=== PATIENT | male | born 1960 | race Caucasian/White ===

== ENCOUNTER 2016-04-25 13:46 | Day surgery (SDC) | payer BC ==
[~2016-04-25 13:46] MED LIST: AMLODIPINE BESY10 MG PO; APEDRIA; APIDRA100 UNIT/1 SC; ASPIR-LOW81 MG PO; ASPIRIN325 MG PO; ATORVASTATIN CA80 MG PO; CATAPRES0.2 MG PO; CLONIDINE HCL0.1 MG PO; CLOPIDOGREL75 MG PO; COUMADIN5 MG PO; DICYCLOMINE HCL10 MG PO; HYDROCHLOROTHIA25 MG PO; LANTUS 3 M100 UNITS1 SC; LANTUS100 UNIT/1 SQ; LOSARTAN POTAS100 MG PO; METOPROLOL TART25 MG PO; NAPROSYN500 MG PO; NITROGLYCERIN0.4 MG PO; NORMODYNE,TRAN200 MG PO; NORVASC2.5 MG PO; NOVOLOG100 UNIT/1 SQ; OMEPRAZOLE40 M1 PO; PANTOPRAZOLE SO40 MG PO; PERCOCET 10/1 TABLET PO; PRINIVIL20 MG PO; PROTONIX40 MG PO; ULTRAM50 MG PO; VALIUM5 MG PO
[2016-04-25 14:33] LABS: POINT-OF-CARE METER ID UU13113696
[2016-04-25 16:24] LABS: POINT-OF-CARE METER ID UU13113819
== END 2016-04-25 19:10 | disposition home or self-care (01) ==
LOC: CATH 13:46
PROVIDERS: Surgery
PROC: 047L34Z Dilation of Left Femoral Artery with Drug-eluting Intraluminal Device, Percutaneous Approach (ICD-10-PCS; principal; 2016-04-25)
DX: I70.222 Atherosclerosis of native arteries of extremities with rest pain, left leg (principal); I70.92 Chronic total occlusion of artery of the extremities; E11.9 Type 2 diabetes mellitus without complications; I10 Essential (primary) hypertension; I25.10 Atherosclerotic heart disease of native coronary artery without angina pectoris; M19.90 Unspecified osteoarthritis, unspecified site
CPT/HCPCS: 82948; C1725; C1760; C1769; C1874; C1887; C1894; J1644; J2250; J3010; S0020

== ENCOUNTER 2016-07-07 17:12 | Observation (INO) | payer BC ==
[~2016-07-07] VITALS: Ht 182.9 cm; Wt 91.4 kg
[2016-07-07 17:48] LABS: HEMATOCRIT 53.1 % (38.0-50.0); MCH 28.5 PG (29.0-34.0); MCHC 33.9 G/DL (30.0-36.0); MCV 84.2 FL (86-99); MEAN PLAT.VOLUME 9.4 uM^3 (9.0-12.4); PLATELET COUNT 309 K/uL (156-360); RBC DIS.WIDTH-CV 12.9 % (11.8-14.6); RBC DIS.WIDTH-SD 39.8 % (39-53); RED BLOOD COUNT 6.31 M/uL (4.00-5.50); WHITE BLOOD COUNT 12.5 K/uL (4.1-10.2)
[2016-07-07 17:52] LABS: POINT-OF-CARE METER ID UU14100415
[2016-07-07 18:09] LABS: CHLORIDE 99 mEq/L (99-109); POTASSIUM 4.3 mEq/L (3.7-5.4); SODIUM 136 mEq/L (136-147)
[2016-07-07 18:10] LABS: GLUCOSE 387 mg/dL (70-99)
[2016-07-07 18:12] LABS: ANION GAP 17 MEQ/L (2-14)
[2016-07-07 18:14] LABS: GFR ESTIMATE (CALCULATED) 56 mL/min/
[2016-07-07 18:15] LABS: UREA NITROGEN (BUN) 14 mg/dL (9-23)
[2016-07-07 18:19] LABS: TROP-I INTERPRETATION NEGATIVE; TROPONIN-I < 0.01 ng/mL (0.0-0.30)
[2016-07-07 18:43] LABS: D-DIMER ELISA 0.26 mg/L FEU (< 0.57)
[2016-07-07 21:04] LABS: TROP-I INTERPRETATION NEGATIVE; TROPONIN-I < 0.01 ng/mL (0.0-0.30)
[2016-07-07 23:29] VITALS: BP 149/97
[2016-07-07 23:52] LABS: POINT-OF-CARE METER ID UU13113700
[2016-07-08] MEDS ORDERED: ATORVASTATIN CA80 MG PO (02:15)
[2016-07-08] MEDS ORDERED: LO-DOSE ASPIRIN81 M2 PO (02:15)
[2016-07-08] MEDS ORDERED: PLAVIX75 MG PO (02:16)
[2016-07-08] MEDS ORDERED: LANTUS 3 M100 UNITS1 SC (02:19)
[2016-07-08] MEDS ORDERED: APIDRA100 UNIT/1 SC (02:20)
[2016-07-08] MEDS ORDERED: METOPROLOL TART25 MG PO (02:21)
[2016-07-08] MEDS ORDERED: LOSARTAN POTAS100 MG PO (02:21)
[2016-07-08] MEDS ORDERED: NITROSTAT0.4 MG SL (02:22)
[2016-07-08] MEDS ORDERED: PROTONIX40 MG PO (02:22)
[2016-07-08] MEDS ORDERED: COUMADIN5 MG PO (02:25)
[2016-07-08] MEDS ORDERED: CLONIDINE HCL0.1 MG PO (02:26)
[2016-07-08] MEDS ORDERED: AMLODIPINE BESY10 MG PO (02:26)
[2016-07-08] MEDS ORDERED: HYDROCHLOROTHIA25 MG PO (02:27)
[2016-07-08] MEDS ORDERED: ULTRAM ER100 MG PO (02:33)
[2016-07-08 02:36] LABS: TROP-I INTERPRETATION NEGATIVE; TROPONIN-I < 0.01 ng/mL (0.0-0.30)
[2016-07-08 05:30] VITALS: BP 121/72
[2016-07-08 07:49] VITALS: BP 143/78
[2016-07-08 08:21] LABS: POINT-OF-CARE METER ID UU13113700
== END 2016-07-08 08:42 | disposition home or self-care (01) ==
LOC: EME 17:12 → EDOF 20:13 → 5WEST 22:33
PROVIDERS: Emergency Medicine; Hospitalist; Internal Medicine
DX: R07.9 Chest pain, unspecified (principal); E11.65 Type 2 diabetes mellitus with hyperglycemia; I25.10 Atherosclerotic heart disease of native coronary artery without angina pectoris; I10 Essential (primary) hypertension; F17.200 Nicotine dependence, unspecified, uncomplicated; I73.9 Peripheral vascular disease, unspecified; Z95.5 Presence of coronary angioplasty implant and graft; E78.5 Hyperlipidemia, unspecified; G25.81 Restless legs syndrome
CPT/HCPCS: 71020; 80048; 82948; 84484; 85027; 85379; 93005; 99281; 99285; G0378; J1815; J7030

== ENCOUNTER 2016-08-01 00:22 | Emergency (ER) | payer BC ==
[~2016-08-01] VITALS: Ht 182.9 cm; Wt 91.9 kg
[~2016-08-01 00:22] MED LIST changes: +LO-DOSE ASPIRIN81 M2 PO; +NITROSTAT0.4 MG SL; +PLAVIX75 MG PO; +ULTRAM ER100 MG PO
[2016-08-01 01:07] LABS: BASOPHIL COUNT 0.1 K/uL (0-0.1); EOSINOPHIL (%) 1.2 % (0-5); EOSINOPHIL COUNT 0.1 K/uL (0-0.3); HEMATOCRIT 50.2 % (38.0-50.0); IMMATURE GRANULOCYTE (%) 0.3 % (0.0-0.7); INSTRUMENT ABS NEUTROPHIL CT 4.5 K/uL; LYMPHOCYTE COUNT 3.1 K/uL (1.0-2.8); MCH 28.8 PG (29.0-34.0); MCHC 34.3 G/DL (30.0-36.0); MCV 83.9 FL (86-99); MEAN PLAT.VOLUME 9.7 uM^3 (9.0-12.4); MONOCYTE (%) 9.9 % (3-12); MONOCYTE COUNT 0.9 K/uL (0-0.8); NEUTROPHIL (%) 51.8 % (45-76); NEUTROPHIL COUNT 4.5 K/uL (1.8-6.4); PLATELET COUNT 300 K/uL (156-360); RBC DIS.WIDTH-CV 12.4 % (11.8-14.6); RBC DIS.WIDTH-SD 37.7 % (39-53); RED BLOOD COUNT 5.98 M/uL (4.00-5.50); WHITE BLOOD COUNT 8.7 K/uL (4.1-10.2)
[2016-08-01 01:20] LABS: CHLORIDE 96 mEq/L (99-109); POTASSIUM 4.2 mEq/L (3.7-5.4); SODIUM 133 mEq/L (136-147)
[2016-08-01 01:23] LABS: ANION GAP 13 MEQ/L (2-14)
[2016-08-01 01:24] LABS: TOTAL BILIRUBIN 0.4 mg/dL (0.0-1.0)
[2016-08-01 01:25] LABS: ALKALINE PHOSPHATASE 88 IU/L (3-129)
[2016-08-01 01:26] LABS: GFR ESTIMATE (CALCULATED) 56 mL/min/
[2016-08-01 01:27] LABS: UREA NITROGEN (BUN) 14 mg/dL (9-23)
[2016-08-01 01:29] LABS: LIPASE 45 U/L (1.0-51.0)
[2016-08-01 01:32] LABS: GLUCOSE 571 mg/dL (70-99)
[2016-08-01 01:46] LABS: ADD MIUA? NO; BILIRUBIN NEGATIVE; BLOOD NEGATIVE; COLOR STRAW ((YELLOW)); GLUCOSE (STRIP) >=500; KETONES NEGATIVE; LEUKOCYTES NEGATIVE; NITRITE NEGATIVE; PROTEIN (STRIP) NEGATIVE; SPECIFIC GRAVITY 1.029 (1.000-1.030); UCUL ADDED? NO; UROBILINOGEN 0.2 MG/DL (0.2-1.0)
[2016-08-01 02:42] LABS: POINT-OF-CARE METER ID UU13113702
[2016-08-01 03:17] VITALS: BP 137/84
[2016-08-01 07:01] LABS: Estimated Average Glucose 278 mg/dL (70-123); HEMOGLOBIN A1c (GLYCOHEMOGLOB) 11.3 % HGB (Below 5.7)
[2016-08-01 14:48] LABS: POINT-OF-CARE METER ID UU13113778
== END 2016-08-01 03:17 | disposition home or self-care (01) ==
LOC: EME 00:22
PROVIDERS: Emergency Medicine
DX: E11.65 Type 2 diabetes mellitus with hyperglycemia (principal); E78.5 Hyperlipidemia, unspecified; I10 Essential (primary) hypertension; Z79.4 Long term (current) use of insulin; I25.2 Old myocardial infarction; K21.9 Gastro-esophageal reflux disease without esophagitis; Z95.5 Presence of coronary angioplasty implant and graft; Z88.6 Allergy status to analgesic agent; F17.200 Nicotine dependence, unspecified, uncomplicated
CPT/HCPCS: 80053; 81003; 82010; 82800; 82948; 83036; 83605; 83690; 85025; 99281; 99285; J7030

== ENCOUNTER 2016-12-13 04:13 | Emergency (ER) | payer BC ==
[~2016-12-13] VITALS: Ht 182.9 cm; Wt 77.2 kg
[2016-12-13 05:25] LABS: CHLORIDE 98 mEq/L (99-109); POTASSIUM 3.9 mEq/L (3.7-5.4); SODIUM 134 mEq/L (136-147)
[2016-12-13 05:26] LABS: GLUCOSE 370 mg/dL (70-99)
[2016-12-13 05:28] LABS: ANION GAP 9 MEQ/L (2-14)
[2016-12-13 05:30] LABS: GFR ESTIMATE (CALCULATED) > 59 mL/min/; TROP-I INTERPRETATION NEGATIVE; TROPONIN-I < 0.01 ng/mL (0.0-0.30)
[2016-12-13 05:31] LABS: UREA NITROGEN (BUN) 16 mg/dL (9-23)
[2016-12-13 05:33] LABS: HEMATOCRIT 47.1 % (38.0-50.0); MCH 28.6 PG (29.0-34.0); MCHC 33.8 G/DL (30.0-36.0); MCV 84.7 FL (86-99); MEAN PLAT.VOLUME 9.7 uM^3 (9.0-12.4); PLATELET COUNT 280 K/uL (156-360); RBC DIS.WIDTH-CV 12.7 % (11.8-14.6); RBC DIS.WIDTH-SD 39.1 % (39-53); RED BLOOD COUNT 5.56 M/uL (4.00-5.50); WHITE BLOOD COUNT 9.3 K/uL (4.1-10.2)
[2016-12-13 07:24] VITALS: BP 134/84
== END 2016-12-13 07:26 | disposition left against medical advice (07) ==
LOC: EME 04:13
DX: R07.9 Chest pain, unspecified (principal); E11.65 Type 2 diabetes mellitus with hyperglycemia; R94.31 Abnormal electrocardiogram [ECG] [EKG]; Z53.20 Procedure and treatment not carried out because of patient's decision for unspecified reasons; I10 Essential (primary) hypertension; E78.5 Hyperlipidemia, unspecified; I25.10 Atherosclerotic heart disease of native coronary artery without angina pectoris; I25.2 Old myocardial infarction; Z95.5 Presence of coronary angioplasty implant and graft; Z79.02 Long term (current) use of antithrombotics/antiplatelets; Z79.82 Long term (current) use of aspirin; Z79.4 Long term (current) use of insulin; F17.200 Nicotine dependence, unspecified, uncomplicated
CPT/HCPCS: 71020; 80048; 84484; 85027; 93005; 99281; 99283

== ENCOUNTER 2017-02-07 13:12 | Emergency (ER) | payer BC ==
[~2017-02-07] VITALS: Ht 172.7 cm; Wt 95.0 kg
[2017-02-07 13:57] VITALS: BP 78/00
== END 2017-02-07 17:53 ==
LOC: EME 13:12
PROC: 5A12012 Performance of Cardiac Output, Single, Manual (ICD-10-PCS; principal; 2017-02-07)
DX: I46.9 Cardiac arrest, cause unspecified (principal); I49.8 Other specified cardiac arrhythmias; I25.2 Old myocardial infarction; Z98.61 Coronary angioplasty status
CPT/HCPCS: 80048; 81003; 82150; 83605; 83690; 84484; 85025; 85610; 85730; 86850; 86900; 86901; 87040; 99281; 99285; G0480; J0171; J0282; J2001; J3475